=== PATIENT | female | born 1985 | race Asian ===

== ENCOUNTER 2024-01-16 09:44 | Inpatient (IN) | payer MEDICAID, OTHER ==
[2024-01-15 12:28] LABS: Hematocrit 33.1 % (34.9-44.5); Hemoglobin 10.4 g/dL (12.0-15.5); Mean Corpuscular HGB CONC 31.4 g/dL (32.0-36.0); Mean Corpuscular Hemoglobin 25.1 pg (27.0-33.0); Mean Platelet Volume 8.6 fL (7.4-10.4); Platelet Count 410 10x3/uL (150-450); RBC Distribution Width 20.7 % (11.5-14.5); Red Blood Cell (RBC) Count 4.14 10x6/uL (3.90-5.03); White Blood Cell (WBC) Count 10.5 10x3/uL (3.5-10.5)
[2024-01-15 13:09] LABS: Syphilis Antibody Nonreactive (Nonreactive); Syphilis Antibody Index 0.07 S/CO (<1.00 Non-Reactive)
[2024-01-15 13:11] LABS: HBsAg Index 0.21 S/CO (0-0.99); Hep B Surf Ag Non-Reactive S/CO (NonReactive)
[2024-01-16 09:51] VITALS: BMI 29.6
[2024-01-16] MEDS ORDERED: Naloxone HCl 0.4 mg/ml Vial IVP PRN ×2 (10:02)
[2024-01-16] MEDS ORDERED: Ondansetron PF 4 MG/2 ML Vial IVP PRN ×3 (10:02→16:16)
[2024-01-16] MEDS ORDERED: Ketorolac Tromethamine 30 MG (1 mL) VIAL IVP PRN (10:02)
[2024-01-16] MEDS ORDERED: diphenhydrAMINE 50 MG/ML VIAL IVP PRN (10:02)
[2024-01-16] MEDS ORDERED: Moisturizing Cream (Eucerin) 113 GM JAR TOP PRN (10:02)
[2024-01-16] MEDS ORDERED: Naloxone HCl 0.4 mg/ml Vial IV PRN (10:02)
[2024-01-16] MEDS ORDERED: fentaNYL 50 mcg/mL 1 mL Vial SLOW IVP PRN ×2 (10:02→16:16)
[2024-01-16] MEDS ORDERED: HYDROmorphone 0.5 MG/0.5 ML SYRINGE SLOW IVP PRN (10:02)
[2024-01-16] MEDS ORDERED: Promethazine HCl 25 MG/ML VIAL IM PRN ×3 (10:02→16:16)
[2024-01-16] MEDS ORDERED: Meperidine HCl/PF 25 MG (1 mL) VIAL SLOW IVP PRN (10:02)
[2024-01-16] MEDS ORDERED: Ketorolac Tromethamine 30 MG (1 mL) VIAL IVP SCH (10:15)
[2024-01-16] MEDS ORDERED: Communication Order-Pharmacy FS SCH (10:15)
[2024-01-16] MEDS ORDERED: Carboprost 250 MCG/ML AMP IM PRN (16:16)
[2024-01-16] MEDS ORDERED: Bisacodyl 10 MG SUPP PR PRN (16:16)
[2024-01-16] MEDS ORDERED: Bicitra 30 ML UDCUP PO PRN (16:16)
[2024-01-16] MEDS ORDERED: Simethicone Chewable 80 MG TAB PO PRN (16:16)
[2024-01-16] MEDS ORDERED: Lanolin Ointment 7 GM TUBE TOP PRN (16:16)
[2024-01-16] MEDS ORDERED: Acetaminophen 500 MG TAB PO PRN (16:16)
[2024-01-16] MEDS ORDERED: Oxytocin 30 units/NS 500 ML 500 ML IV SCH (16:16)
[2024-01-16] MEDS ORDERED: hydrALAZINE 20 MG/ML VIAL SLOW IVP PRN ×2 (16:16)
[2024-01-16] MEDS ORDERED: Methylergonovine 0.2 MG/ML VIAL IM PRN (16:16)
[2024-01-16] MEDS ORDERED: HYDROcodone/Acetaminophen 5/325 mg Tablet PO PRN (16:16)
[2024-01-16] MEDS ORDERED: Famotidine/PF 20 mg/2ml Vial SLOW IVP PRN (16:16)
[2024-01-16] MEDS ORDERED: Diphenoxylate HCl/Atropine Tablet PO PRN (16:16)
[2024-01-16] MEDS ORDERED: Meperidine HCl/PF 25 MG (1 mL) VIAL IM PRN (16:16)
[2024-01-16] MEDS ORDERED: diphenhydrAMINE 25 MG CAP PO PRN (16:16)
[2024-01-16] MEDS ORDERED: Misoprostol 200 MCG TAB PR PRN (16:16)
[2024-01-16] MEDS ORDERED: Tranexamic Acid 1,000 MG/10 ML VIAL IVP PRN (16:16)
[2024-01-16] MEDS ORDERED: CEFAZOLIN 2 GM in Sodium Chloride 0.9% 100 ML IVPB SCH (16:16)
[2024-01-16] MEDS: Ketorolac Tromethamine 30 MG (1 mL) VIAL IVP SCH (17:43)
[2024-01-16] MEDS: Ondansetron PF 4 MG/2 ML Vial IVP PRN (17:52)
[2024-01-16] MEDS: Oxytocin 10 UNITS/ML VIAL ONE ×2 (20:12)
[2024-01-16] MEDS: Ondansetron PF 4 MG/2 ML Vial ONE (20:12)
[2024-01-16] MEDS: CEFAZOLIN 2 GM VIAL ONE (20:12)
[2024-01-16] MEDS: Erythromycin Base 0.5% Oint 1 GM TUBE ONE (20:12)
[2024-01-16] MEDS: PHENYLEPHRINE-NS 100 MCG/ML 10 ML SYRINGE ONE (20:13)
[2024-01-16] MEDS: Phytonadione Neonatal 1 MG/0.5 ML AMP ONE (20:13)
[2024-01-16] MEDS: Morphine PF 10 MG/10 ML VIAL ONE (20:13)
[2024-01-16] MEDS: fentaNYL 50 mcg/mL 1 mL Vial ONE (20:13)
[2024-01-16] MEDS: Docusate 100 MG CAP PO SCH (21:38)
[2024-01-16] MEDS: Ferrous Sulfate 325 MG TAB PO SCH (21:38)
[2024-01-17] MEDS: Ketorolac Tromethamine 30 MG (1 mL) VIAL IVP SCH (00:31)
[2024-01-17 05:19] LABS: Hematocrit 28.9 % (34.9-44.5); Mean Corpuscular HGB CONC 31.1 g/dL (32.0-36.0); Mean Corpuscular Hemoglobin 25.1 pg (27.0-33.0); Mean Corpuscular Volume 80.5 fL (81.6-98.3); Mean Platelet Volume 8.5 fL (7.4-10.4); Platelet Count 312 10x3/uL (150-450); RBC Distribution Width 20.7 % (11.5-14.5); Red Blood Cell (RBC) Count 3.59 10x6/uL (3.90-5.03); White Blood Cell (WBC) Count 7.6 10x3/uL (3.5-10.5)
[2024-01-17] MEDS: Lactated Ringer's 1,000 ML IV SCH (07:07)
[2024-01-17] MEDS: Boostrix 0.5 ML (Tdap) VIAL (>/=7 yrs of age) IM ONE (07:08)
[2024-01-17] MEDS: Prenatal Vitamin 1 TAB PO SCH (08:15)
[2024-01-17] MEDS: HYDROcodone/Acetaminophen 5/325 mg Tablet PO PRN (08:15)
[2024-01-17] MEDS ORDERED: Ibuprofen 800 MG TAB PO SCH (14:00)
[2024-01-18] MEDS: Ibuprofen 800 MG TAB PO SCH (01:30)
[2024-01-19 08:08] VITALS: BP 127/74; TEMP 98.2
== END 2024-01-19 13:15 | disposition home or self-care (01) | DRG 788 ==
LOC: CSHLD 09:44 → EDUNIT# 12:00 → CSHPED 15:55
PROVIDERS: ADMIT Family Medicine; ATTEND Family Medicine
PROC: 10D00Z1 Extraction of Products of Conception, Low, Open Approach (ICD-10-PCS; principal; 2024-01-16)
DX: O34.211 Maternal care for low transverse scar from previous cesarean delivery (principal); Z3A.39 39 weeks gestation of pregnancy; Z37.0 Single live birth; Z79.899 Other long term (current) drug therapy; Z91.014 Allergy to mammalian meats; Z79.82 Long term (current) use of aspirin
CPT/HCPCS: 36415; 51702; 85027; 86780; 86850; 86900; 86901; 87340; C1889; J1885; J2274; J2405; J2590; J3010